=== PATIENT | female | born 1960 | race Caucasian/White ===

== ENCOUNTER 2018-09-11 17:08 | Emergency (ER) | payer OTHER, SELFPAY ==
[~2018-09-11] VITALS: Ht 160 cm; Wt 73.5 kg
--- NOTE | 2018-09-11 17:14 | NUR ---
PATIENT BIB [facility] FROM HOME, PATIENT RAN OUT OF [facility] 1 WEEK AGO AND REPORTS DEPRESSION SINCE PER EMS. DENIES HI/SI AT THIS TIME. AWAITING MD ORDERS, CALL LIGHT WITHIN REACH.
[2018-09-11] MEDS ORDERED: SERT100T PO (17:22)
--- NOTE | 2018-09-11 17:22 | NUR ---
PATIENT ANXIOUS BUT COOPERATIVE, SITTING IN GURNEY WATCHING TV. AWAITING FURTHER ORDERS, NO ADDITIONAL NEEDS AT THIS TIME.
[2018-09-11] MEDS ORDERED: TRAM50TA2 PO (17:23)
[2018-09-11] MEDS ORDERED: HORMONE (17:23)
--- NOTE | 2018-09-11 17:38 | NUR ---
PATIENT AMB WITH STEADY GAIT TO BATHROOM, UA COLLECTED AND SENT TO LAB.
--- NOTE | 2018-09-11 17:47 | NUR ---
break coverage: assumed care of pt on behalf of primary RN for break coverage. lab at bedside to draw
[2018-09-11 18:03] LABS: AMPHETAMINE SCREEN, URINE Negative (Negative); BARBITURATE SCREEN, URINE Negative (Negative); BENZODIAZEPINE SCREEN, URINE Negative (Negative); CANNABINOID SCREEN, URINE Positive (Negative); COCAINE SCREEN, URINE Negative (Negative); METHADONE SCREEN, URINE Negative (Negative); OPIATE SCREEN, URINE Negative (Negative)
[2018-09-11 18:03] LABS: BASOPHILS # (AUTO) 0.03 x10^3/uL (0-0.1); BASOPHILS % (AUTO) 1 % (0-1); EOSINOPHILS # (AUTO) 0.06 x10^3/uL (0-0.4); EOSINOPHILS % (AUTO) 1 % (1-7); LYMPHOCYTES # (AUTO) 1.96 x10^3/uL (1-3.4); LYMPHOCYTES % (AUTO) 31 % (22-44); MD NO; MEAN CORPUSCULAR HEMOGLOBIN 32.4 pg (27.0-34.8); MEAN CORPUSCULAR HGB CONC 33.6 g/dL (32.4-35.8); MEAN CORPUSCULAR VOLUME 96.5 fL (80-100); MEAN PLATELET VOLUME 7.9 fL (7.4-10.4); MONOCYTES # (AUTO) 0.36 x10^3/uL (0.2-0.8); MONOCYTES % (AUTO) 6 % (2-9); NEUTROPHILS # (AUTO) 3.94 x10^3/uL (1.8-6.8); NEUTROPHILS % (AUTO) 62 % (42-75); PLATELET COUNT 377 x10^3/uL (130-400); RED CELL DISTRIBUTION WIDTH 14.4 % (9.6-15.2)
[2018-09-11 18:15] LABS: ALBUMIN 3.8 g/dL (3.4-5.0); ANION GAP 7 mmol/L (5-15); CALCIUM 8.7 mg/dL (8.5-10.1); CHLORIDE 109 mmol/L (98-107)
[2018-09-11 18:19] LABS: ALANINE AMINOTRANSFERASE 20 U/L (12-78); ALKALINE PHOSPHATASE 99 U/L (45-117); BILIRUBIN,TOTAL 0.3 mg/dL (0.2-1.0); CREATININE 1.06 mg/dL (0.55-1.02); SALICYLATE LEVEL 3.2 mg/dL (2.8-20.0); TOTAL PROTEIN 7.1 g/dL (6.4-8.2)
--- NOTE | 2018-09-11 18:36 | NUR ---
RESULTS BACK, CHART UP FOR RECHECK.
--- NOTE | 2018-09-11 18:59 | NUR ---
LISA-0.242, PER ERP, PATIENT TO HAVE TELEPSYCH EVAL WHEN SO[place], [place] AWARE. MTF, PATIENT REQUESTING FOOD, DINNER TRAY ORDERED AT THIS TIME. NADN. NO ADDITIONAL NEEDS AT THIS TIME.
--- NOTE | 2018-09-11 19:29 | NUR ---
PATIENT PROVIDED DINNER ZAYRA ELLER. VS UPDATED IN CHART.
[2018-09-11 20:04] VITALS: BP 156/97
--- NOTE | 2018-09-11 20:05 | NUR ---
VS UPDATED IN CHART, PATIENT SITTING IN GURNEY WATCHING TV, A+0X4. AWAITING TELEPSYCH WHEN SOBER.
--- NOTE | 2018-09-11 20:25 | NUR ---
BREATHALYZER-0.104, AWAITING PATIENT TO BE SOBER PRIOR TO TELEPSYCH. PATIENT SITTING IN [place] WATCHING TV, A+OX4. PATIENT UPDATED ON POC.
--- NOTE | 2018-09-11 20:59 | NUR ---
REPORT TO ABRAHAM DEXTER. PATIENT REQUESTING TO GO HOME, NEW RN AND ERP AWARE. PATIENT TO BE DC'D PER ERP, PATIENT DENIES SI/HI AT THIS TIME. ZAYRA.
--- NOTE | 2018-09-11 21:00 | NUR ---
REPORT FROM ABRAHAM ARROYO. PT REQUESTING DC. ERP AT BEDSIDE TO DISCUSS
--- NOTE | 2018-09-11 21:10 | NUR ---
PER ERP, PT AGREEING TO TELEPSYCH CONSULT FOR GUIDANCE ON RX. ONCE SOBER, WILL TELEPSYCH
[2018-09-11] MEDS ORDERED: ONDANSETRON ODT 4 MG ONE (21:29)
[2018-09-11] MEDS ORDERED: ONDANSETRON ODT 4 MG PO ONE (21:30)
--- NOTE | 2018-09-11 21:33 | NUR ---
Assisted in pt care. Pt medicated per MAY s/t vomiting. Repeat breathalizer to be completed when pt able.
--- NOTE | 2018-09-11 21:56 | NUR ---
PT REPORTS IMPROVEMENT IN NAUSEA WITH MEDICATIONS. PT AMBULATES STEADILY, SPEECH CLEAR; A&OX4. NON-TREMULOUS. TELE PSYCH INITIATED. MONITOR AT BEDSIDE AND PT UPDATED TO POC. PT DEMONSTRATES UNDERSTANDING. AWAITING EVAL.
--- NOTE | 2018-09-11 23:02 | NUR ---
PT RESTING COMFORTABLY IN GURNEY. DENIES NEEDS. TELE PSYCH MONITOR AT BEDSIDE. AWAITING EVAL.
--- NOTE | 2018-09-12 00:31 | NUR ---
PT REMAINS WAITING PATIENTLY IN [facility]. TELE PSYCH MONITOR AT BEDSIDE.
--- NOTE | 2018-09-12 00:46 | NUR ---
REPORT TO ABRAHAM MARTINEZ
--- NOTE | 2018-09-12 00:52 | NUR ---
REPORT RECEIVED FROM ISACC ROSARIO.
--- NOTE | 2018-09-12 02:19 | NUR ---
PT GIVEN DC INSTRUCTIONS AND SCRIPT. PT EDUCATED REGARDING DC MEDICATION. PT'S AOX4. RESPS EVEN AND UNLABORED. PT AMB TO DC WITH STEADY GAIT. NO ACUTE DISTRESS AT DC.
== END 2018-09-12 02:20 | disposition home or self-care (01) ==
LOC: ED 19:53
DX: F32.1 Major depressive disorder, single episode, moderate (principal); F17.200 Nicotine dependence, unspecified, uncomplicated
CPT/HCPCS: 36415; 80053; 80307; 85025; 99284; Q0162

== ENCOUNTER 2019-07-31 20:21 | Emergency (ER) | payer SELFPAY ==
[~2019-07-31] VITALS: Ht 162.6 cm; Wt 60.0 kg
[~2019-07-31 20:21] MED LIST: HORMONE; SERT100T PO; TRAM50TA2 PO
--- NOTE | 2019-07-31 20:33 | NUR ---
PATIENT TO ED PER [facility] FOR EVALUATION OF FALL AND ETOH. PATIENT IS A CHRONIC ALCOHOLIC. [facility] REPORTS SHE DRANK A PINT OF LIQUOR TODAY AND DROVE HERSELF TO THE [employer]AS STATION TO GET MORE LIQUOR. [facility] REPORTS THAT PATIENT HAD A WITNESSED FALL GOING INTO THE [employer]. NO LOC. PATIENT REPORTS SHE DID HIT HER HEAD. SHE DENIES ANY CURRENT PAIN OR COMPLAINTS. ALERT AND COOPERATIVE. ORIENTED TO PERSON, PLACE AND SITUATION. NOT TIME. BLOOD SUGAR WAS 99 [address] R[address].
--- NOTE | 2019-07-31 20:38 | NUR ---
PATIENT TO AND FROM CT. AWAITING RESULTS.
--- NOTE | 2019-07-31 20:54 | NUR ---
CT NEGATIVE. GIVEN WATER OK PER .
--- NOTE | 2019-07-31 21:20 | NUR ---
PATIENT AMBULATED AROUND ED WITH STABLE GAIT AND STANDY ASSIST. PATIENT VOICES THAT SHE IS READY FOR D/C HOME. DISCUSSED WITH .
[2019-07-31 21:22] VITALS: BP 146/87
== END 2019-07-31 21:24 | disposition home or self-care (01) ==
LOC: ED 21:00
DX: F10.221 Alcohol dependence with intoxication delirium (principal); S09.90XA Unspecified injury of head, initial encounter; R55 Syncope and collapse; F17.200 Nicotine dependence, unspecified, uncomplicated; Y90.0 Blood alcohol level of less than 20 mg/100 ml; W18.30XA Fall on same level, unspecified, initial encounter; Y93.89 Activity, other specified; Y92.89 Other specified places as the place of occurrence of the external cause; Y99.8 Other external cause status
CPT/HCPCS: 70450; 99284

== ENCOUNTER 2019-11-10 13:10 | Emergency (ER) | payer SELFPAY ==
[~2019-11-10] VITALS: Ht 160 cm; Wt 63.7 kg
--- NOTE | 2019-11-10 13:40 | NUR ---
PT PLACED ON ROOM MONITORING, WARM BLANKET OFFERED. PT DENIES CP, SOB, N/V. SLIGHT TREMORS TO BILATERAL HANDS. PT APPEARS ANXIOUS AND DESCRIBES SX OF "FEELING SHAKY". PT STATES HX OF ETOH ABUSE MOST OF ADULT LIFE-NO PREVIOUS DETOX ATTEMPTS, AND DEPRESSION. PT DENIES SI, HI. CALL LIGHT WITHIN REACH.
[2019-11-10] MEDS ORDERED: CHLORDIAZEPOXIDE 25 MG CAPSULE PO ONE (14:00)
[2019-11-10] MEDS ORDERED: THIAMINE 100MG TABLET PO ONE (14:00)
[2019-11-10] MEDS ORDERED: ONDANSETRON ODT 4 MG PO ONE (14:00)
[2019-11-10] MEDS ORDERED: ONDANSETRON ODT 8 MG ONE (14:05)
[2019-11-10] MEDS ORDERED: THIAMINE 100MG TABLET ONE (14:05)
[2019-11-10] MEDS ORDERED: CHLORDIAZEPOXIDE 25 MG CAPSULE ONE (14:05)
--- NOTE | 2019-11-10 14:13 | NUR ---
MEDS GIVEN PER ERP ORDER. PT ASKED ABOUT WILLINGNESS TO GO TO [facility] IF SPACE AVAILABLE. PT REFUSING PLACEMENT WITH [facility]. STATES SHE WAS THERE FOR INPT TREATMENT IN MAY AND DOESN'T WANT TO GO BACK. RAFAEL PEPE INFORMED.
[2019-11-10 14:16] LABS: BASOPHILS # (AUTO) 0.04 x10^3/uL (0-0.1); BASOPHILS % (AUTO) 1 % (0-1); EOSINOPHILS # (AUTO) 0.06 x10^3/uL (0-0.4); EOSINOPHILS % (AUTO) 1 % (1-7); LYMPHOCYTES # (AUTO) 2.11 x10^3/uL (1-3.4); LYMPHOCYTES % (AUTO) 24 % (22-44); MD NO; MEAN CORPUSCULAR HEMOGLOBIN 30.1 pg (27.0-34.8); MEAN CORPUSCULAR HGB CONC 33.8 g/dL (32.4-35.8); MEAN CORPUSCULAR VOLUME 89.1 fL (80-100); MEAN PLATELET VOLUME 7.6 fL (7.4-10.4); MONOCYTES # (AUTO) 0.43 x10^3/uL (0.2-0.8); MONOCYTES % (AUTO) 5 % (2-9); NEUTROPHILS # (AUTO) 6.35 x10^3/uL (1.8-6.8); NEUTROPHILS % (AUTO) 71 % (42-75); PLATELET COUNT 391 x10^3/uL (130-400); RED BLOOD COUNT 5.29 x10^6/uL (3.82-5.3)
[2019-11-10 14:27] LABS: ALBUMIN 3.9 g/dL (3.4-5.0); ANION GAP 11 mmol/L (5-15); CALCIUM 8.3 mg/dL (8.5-10.1); CHLORIDE 106 mmol/L (98-107)
[2019-11-10 14:30] LABS: ALANINE AMINOTRANSFERASE 34 U/L (12-78); ALKALINE PHOSPHATASE 120 U/L (45-117); BILIRUBIN,TOTAL 1.2 mg/dL (0.2-1.0); CREATININE 0.88 mg/dL (0.55-1.02); TOTAL PROTEIN 7.3 g/dL (6.4-8.2)
--- NOTE | 2019-11-10 14:51 | NUR ---
ALL RESULTS BACK, PT FOR RECHECK.
--- NOTE | 2019-11-10 15:40 | NUR ---
IN TO PT ROOM TO PROVIDE DISCHARGE INSTRUCTS/SCRIPT. PT NOT IN ROOM AND NOT FOUND IN DEPT OR LOBBY. DC PAPERS AND SCRIPT LEFT AT [employer] [facility].
[2019-11-10 15:46] VITALS: BP 126/74
== END 2019-11-10 15:49 ==
LOC: ED 14:30
DX: F10.10 Alcohol abuse, uncomplicated (principal); R00.0 Tachycardia, unspecified; Y90.0 Blood alcohol level of less than 20 mg/100 ml
CPT/HCPCS: 36415; 80053; 85025; 93005; 99284; Q0162

== ENCOUNTER 2019-11-16 19:32 | Inpatient (IN) | payer OTHER ==
[~2019-11-16] VITALS: Ht 160 cm; Wt 65.3 kg
--- NOTE | 2019-11-16 19:59 | NUR ---
BREAK RN: REPORT GIVEN TO ABRAHAM CARLSON
[2019-11-16] MEDS ORDERED: ONDANSETRON 2MG/ML, 2ML IVPush ONE (20:00)
[2019-11-16] MEDS ORDERED: SODIUM CHLORIDE FLUSH 10ML SYR IVF ONE (20:00)
[2019-11-16] MEDS ORDERED: LORazepam 2 MG/ML, 1ML ONE ×4 (20:02→23:38)
[2019-11-16] MEDS ORDERED: ONDANSETRON 2MG/ML, 2ML ONE (20:02)
[2019-11-16] MEDS: LORazepam 2 MG/ML, 1ML IVPush PRN ×4 (20:14→23:41)
--- NOTE | 2019-11-16 20:57 | NUR ---
PT RESTING IN GURNEY. EYES CLOSED. EQUAL CHEST AND RISE FALL WITH EACH BREATH. NAD
[2019-11-16 21:05] LABS: ALBUMIN 3.4 g/dL (3.4-5.0); ANION GAP 19 mmol/L (5-15); CALCIUM 8.4 mg/dL (8.5-10.1); CHLORIDE 104 mmol/L (98-107)
[2019-11-16 21:09] LABS: ALANINE AMINOTRANSFERASE 58 U/L (12-78); ALKALINE PHOSPHATASE 123 U/L (45-117); BILIRUBIN,TOTAL 0.7 mg/dL (0.2-1.0); CREATININE 0.98 mg/dL (0.55-1.02); TOTAL PROTEIN 6.4 g/dL (6.4-8.2)
--- NOTE | 2019-11-16 21:09 | NUR ---
PT MEDICATED PER MAR
[2019-11-16 21:18] LABS: MEAN CORPUSCULAR HEMOGLOBIN 29.8 pg (27.0-34.8); MEAN CORPUSCULAR HGB CONC 33.5 g/dL (32.4-35.8); MEAN CORPUSCULAR VOLUME 88.9 fL (80-100); MEAN PLATELET VOLUME 7.9 fL (7.4-10.4); PLATELET COUNT 227 x10^3/uL (130-400); RED BLOOD COUNT 4.95 x10^6/uL (3.82-5.3); RED CELL DISTRIBUTION WIDTH 14.4 % (9.6-15.2)
[2019-11-16 21:21] LABS: BASOPHILS # (AUTO) 0.04 x10^3/uL (0-0.1); BASOPHILS % (AUTO) 0 % (0-1); EOSINOPHILS % (AUTO) 0 % (1-7); LYMPHOCYTES # (AUTO) 1.45 x10^3/uL (1-3.4); LYMPHOCYTES % (AUTO) 12 % (22-44); MD SCAN; MONOCYTES # (AUTO) 0.23 x10^3/uL (0.2-0.8); MONOCYTES % (AUTO) 2 % (2-9); NEUTROPHILS % (AUTO) 86 % (42-75)
--- NOTE | 2019-11-16 21:34 | NUR ---
PT TREMLOUS. MEDICATED PER MAY. NOTFIED. TOBADM
--- NOTE | 2019-11-16 22:15 | NUR ---
WARM BLANKET PROVIDED. AWAITING MD ORDERS
[2019-11-16] MEDS ORDERED: SODIUM CHLORIDE FLUSH 10ML SYR IVF PRN (22:30)
[2019-11-16] MEDS ORDERED: SODIUM CHLORIDE 0.9% 1,000 ML IV SCH (23:57)
[2019-11-17] MEDS ORDERED: PROMETHAZINE 25 MG/ML, 1ML IM PRN
[2019-11-17] MEDS ORDERED: morphine SULFATE 10 MG/ML, 1ML IVPush PRN
[2019-11-17] MEDS ORDERED: POLYETHYLENE GLYCOL 17 GM PACKET PO PRN
[2019-11-17] MEDS ORDERED: ONDANSETRON 2MG/ML, 2ML IVPush PRN
[2019-11-17] MEDS ORDERED: DOCUSATE 100 MG CAPSULE PO PRN
[2019-11-17] MEDS ORDERED: hydrALAzine 20 MG/ML, 1ML IVPush PRN
[2019-11-17] MEDS ORDERED: ONDANSETRON ODT 4 MG PO PRN
[2019-11-17] MEDS ORDERED: BISACODYL 10 MG SUPP PR PRN
[2019-11-17] MEDS ORDERED: LORazepam 1MG TABLET PO PRN ×3 (00:30)
[2019-11-17] MEDS ORDERED: D5%-0.45% NACL 1,000 ML IV SCH ×2 (00:30→01:30)
[2019-11-17] MEDS ORDERED: LORazepam 2 MG/ML, 1ML IV PRN ×2 (00:30)
[2019-11-17 00:34] LABS: FREE T4 (FREE THYROXINE) 0.89 ng/dL (0.76-1.46)
[2019-11-17] MEDS ORDERED: HEPARIN 5,000 UNITS/ML, 1ML ONE (01:04)
[2019-11-17] MEDS: HEPARIN 5,000 UNITS/ML, 1ML SQ SCH ×3 (01:12→19:10)
[2019-11-17 01:14] VITALS: BP 132/83
[2019-11-17] MEDS: LORazepam 2 MG/ML, 1ML IV PRN ×5 (05:06→23:07)
[2019-11-17 06:47] VITALS: BP 141/83
[2019-11-17 08:03] LABS: BASOPHILS # (AUTO) 0.02 x10^3/uL (0-0.1); BASOPHILS % (AUTO) 0 % (0-1); EOSINOPHILS # (AUTO) 0.07 x10^3/uL (0-0.4); EOSINOPHILS % (AUTO) 1 % (1-7); LYMPHOCYTES # (AUTO) 2.39 x10^3/uL (1-3.4); LYMPHOCYTES % (AUTO) 29 % (22-44); MD NO; MEAN CORPUSCULAR HEMOGLOBIN 29.7 pg (27.0-34.8); MEAN CORPUSCULAR HGB CONC 33.4 g/dL (32.4-35.8); MEAN CORPUSCULAR VOLUME 88.9 fL (80-100); MEAN PLATELET VOLUME 7.8 fL (7.4-10.4); MONOCYTES # (AUTO) 0.37 x10^3/uL (0.2-0.8); MONOCYTES % (AUTO) 5 % (2-9); NEUTROPHILS # (AUTO) 5.29 x10^3/uL (1.8-6.8); NEUTROPHILS % (AUTO) 65 % (42-75); PLATELET COUNT 172 x10^3/uL (130-400); RED BLOOD COUNT 4.33 x10^6/uL (3.82-5.3); RED CELL DISTRIBUTION WIDTH 14.9 % (9.6-15.2)
[2019-11-17 08:06] LABS: ALANINE AMINOTRANSFERASE 41 U/L (12-78); ANION GAP 5 mmol/L (5-15); CHLORIDE 108 mmol/L (98-107); CHOLESTEROL, TOTAL 124 mg/dL (140-239); CREATININE 0.74 mg/dL (0.55-1.02)
[2019-11-17 08:08] LABS: ALKALINE PHOSPHATASE 107 U/L (45-117); BILIRUBIN,TOTAL 2.3 mg/dL (0.2-1.0); CHOL/HDL RATIO 2.2; HDL CHOL % 45 % (28-40); HDL CHOLESTEROL (DIRECT) 56 mg/dL (40-60); LDL CHOLESTEROL,CALCULATED 40 mg/dL (54-169); LDL/HDL RATIO 0.7 (0.5-3.0); TOTAL PROTEIN 5.5 g/dL (6.4-8.2); TRIGLYCERIDES 140 mg/dL (50-200); VLDL CHOLESTEROL 28 mg/dL (0-25)
[2019-11-17] MEDS: SODIUM CHLORIDE 0.9% 1,000 ML IV SCH ×2 (08:30→17:57)
[2019-11-17] MEDS ORDERED: POTASSIUM CHLORIDE 40 MEQ in SODIUM CHLORIDE 0.9% 500 ML IV ONE (08:30)
[2019-11-17] MEDS: THIAMINE 100MG TABLET PO SCH (09:00)
[2019-11-17] MEDS: SERTRALINE 100MG TABLET PO SCH (10:30)
[2019-11-17] MEDS: LORazepam 1MG TABLET PO SCH ×3 (10:30→20:44)
[2019-11-17] MEDS: MULTIVITAMINS/MINERALS TABLET PO SCH (10:31)
[2019-11-17] MEDS: NICOTINE 14MG/24 HR PATCH.TD24 TD SCH ×2 (10:31→20:44)
[2019-11-17 12:56] VITALS: BP 156/93
[2019-11-17 19:19] VITALS: BP 163/95
[2019-11-17] MEDS: LORazepam 1MG TABLET PO PRN ×2 (20:50→22:01)
[2019-11-17 22:03] VITALS: BP 145/79
[2019-11-17] MEDS: CHLORDIAZEPOXIDE 25 MG CAPSULE PO PRN (23:48)
[2019-11-18 00:26] VITALS: BP 155/86
[2019-11-18] MEDS: LORazepam 2 MG/ML, 1ML IV PRN ×6 (00:53→23:30)
[2019-11-18] MEDS: SODIUM CHLORIDE 0.9% 1,000 ML IV SCH ×2 (02:29→14:30)
[2019-11-18] MEDS: HEPARIN 5,000 UNITS/ML, 1ML SQ SCH ×3 (02:29→18:18)
[2019-11-18 02:59] VITALS: BP 137/86
[2019-11-18 06:27] VITALS: BP 113/79
[2019-11-18] MEDS: CHLORDIAZEPOXIDE 25 MG CAPSULE PO PRN ×2 (06:28→20:11)
[2019-11-18 06:29] LABS: CHLORIDE 108 mmol/L (98-107)
[2019-11-18 06:38] LABS: BASOPHILS # (AUTO) 0.02 x10^3/uL (0-0.1); BASOPHILS % (AUTO) 0 % (0-1); EOSINOPHILS # (AUTO) 0.15 x10^3/uL (0-0.4); EOSINOPHILS % (AUTO) 3 % (1-7); LYMPHOCYTES # (AUTO) 2.02 x10^3/uL (1-3.4); LYMPHOCYTES % (AUTO) 36 % (22-44); MD NO; MEAN CORPUSCULAR HEMOGLOBIN 30.2 pg (27.0-34.8); MEAN CORPUSCULAR VOLUME 88.8 fL (80-100); MEAN PLATELET VOLUME 8.5 fL (7.4-10.4); MONOCYTES # (AUTO) 0.36 x10^3/uL (0.2-0.8); MONOCYTES % (AUTO) 7 % (2-9); NEUTROPHILS # (AUTO) 3.03 x10^3/uL (1.8-6.8); NEUTROPHILS % (AUTO) 54 % (42-75); PLATELET COUNT 156 x10^3/uL (130-400); RED BLOOD COUNT 4.23 x10^6/uL (3.82-5.3); RED CELL DISTRIBUTION WIDTH 14.4 % (9.6-15.2)
[2019-11-18 06:41] LABS: ALANINE AMINOTRANSFERASE 36 U/L (12-78); ALBUMIN 3.3 g/dL (3.4-5.0); ALKALINE PHOSPHATASE 106 U/L (45-117); ANION GAP 7 mmol/L (5-15); BILIRUBIN,TOTAL 1.2 mg/dL (0.2-1.0); CALCIUM 8.9 mg/dL (8.5-10.1); CREATININE 0.67 mg/dL (0.55-1.02)
[2019-11-18] MEDS: LORazepam 1MG TABLET PO SCH ×4 (10:20→20:10)
[2019-11-18] MEDS: SERTRALINE 100MG TABLET PO SCH (10:20)
[2019-11-18] MEDS: MULTIVITAMINS/MINERALS TABLET PO SCH (10:20)
[2019-11-18] MEDS: THIAMINE 100MG TABLET PO SCH (10:20)
[2019-11-18 13:10] VITALS: BP 123/81
[2019-11-18 18:41] VITALS: BP 123/72
[2019-11-19 00:19] VITALS: BP 135/82
[2019-11-19] MEDS: LORazepam 2 MG/ML, 1ML IV PRN ×2 (00:30→02:02)
[2019-11-19] MEDS: HEPARIN 5,000 UNITS/ML, 1ML SQ SCH ×3 (02:02→18:53)
[2019-11-19] MEDS: CHLORDIAZEPOXIDE 25 MG CAPSULE PO PRN ×2 (05:41→20:12)
[2019-11-19] MEDS: LORazepam 1MG TABLET PO SCH ×4 (05:43→20:12)
[2019-11-19 05:54] LABS: ALBUMIN 3.4 g/dL (3.4-5.0); ANION GAP 8 mmol/L (5-15); CALCIUM 8.8 mg/dL (8.5-10.1); CHLORIDE 105 mmol/L (98-107)
[2019-11-19 05:57] LABS: ALANINE AMINOTRANSFERASE 34 U/L (12-78); ALKALINE PHOSPHATASE 95 U/L (45-117); BILIRUBIN,TOTAL 0.9 mg/dL (0.2-1.0); CREATININE 0.62 mg/dL (0.55-1.02); TOTAL PROTEIN 6.5 g/dL (6.4-8.2)
[2019-11-19 08:05] VITALS: BP 146/88
[2019-11-19] MEDS: SODIUM CHLORIDE 0.9% 1,000 ML IV SCH (08:30)
[2019-11-19] MEDS ORDERED: POTASSIUM CHLORIDE 40 MEQ in SODIUM CHLORIDE 0.9% 500 ML IV ONE (10:00)
[2019-11-19] MEDS: MULTIVITAMINS/MINERALS TABLET PO SCH (10:13)
[2019-11-19] MEDS: SERTRALINE 100MG TABLET PO SCH (10:13)
[2019-11-19] MEDS: NICOTINE 14MG/24 HR PATCH.TD24 TD SCH (10:14)
[2019-11-19] MEDS: OXYcodone IR 5MG TABLET PO PRN (10:37)
[2019-11-19] MEDS ORDERED: THIAMINE 50MG TABLET PO SCH (11:00)
[2019-11-19 13:35] VITALS: BP 148/90
[2019-11-19 19:16] VITALS: BP 125/82
[2019-11-20] MEDS: SODIUM CHLORIDE 0.9% 1,000 ML IV SCH (00:34)
[2019-11-20 01:11] VITALS: BP 118/76
[2019-11-20] MEDS: HEPARIN 5,000 UNITS/ML, 1ML SQ SCH (02:28)
[2019-11-20] MEDS: LORazepam 1MG TABLET PO SCH (05:20)
[2019-11-20] MEDS: CHLORDIAZEPOXIDE 25 MG CAPSULE PO PRN (05:20)
[2019-11-20 06:12] LABS: ANION GAP 9 mmol/L (5-15); CALCIUM 8.3 mg/dL (8.5-10.1); CHLORIDE 111 mmol/L (98-107); CREATININE 0.57 mg/dL (0.55-1.02)
[2019-11-20 06:38] VITALS: BP 133/81
[2019-11-20] MEDS: ENOXAPARIN 40 MG/0.4 ML SQ SCH (07:34)
[2019-11-20] MEDS: NICOTINE 14MG/24 HR PATCH.TD24 TD SCH (07:34)
[2019-11-20] MEDS: SERTRALINE 100MG TABLET PO SCH (09:45)
[2019-11-20] MEDS: MULTIVITAMINS/MINERALS TABLET PO SCH (09:45)
[2019-11-20] MEDS: THIAMINE 100MG TABLET PO SCH (09:45)
[2019-11-20 12:50] VITALS: BP 133/84
[2019-11-20 18:26] VITALS: BP 112/68
[2019-11-20] MEDS: LORazepam 0.5MG TABLET PO PRN (20:38)
[2019-11-20] MEDS ORDERED: MELATONIN 5 MG TABLET ONE (23:12)
[2019-11-20] MEDS ORDERED: MELATONIN 5 MG TABLET PO PRN (23:30)
[2019-11-21 00:31] VITALS: BP 128/80
[2019-11-21] MEDS: LORazepam 0.5MG TABLET PO PRN (02:32)
[2019-11-21] MEDS: OXYcodone IR 5MG TABLET PO PRN (03:55)
[2019-11-21 07:11] VITALS: BP 126/76
[2019-11-21] MEDS: THIAMINE 100MG TABLET PO SCH (10:44)
[2019-11-21] MEDS: SERTRALINE 100MG TABLET PO SCH (10:44)
[2019-11-21] MEDS: NICOTINE 14MG/24 HR PATCH.TD24 TD SCH (10:44)
[2019-11-21] MEDS: MULTIVITAMINS/MINERALS TABLET PO SCH (10:44)
[2019-11-21] MEDS: ENOXAPARIN 40 MG/0.4 ML SQ SCH (10:44)
[2019-11-21] MEDS ORDERED: MULT-484 PO (11:34)
[2019-11-21] MEDS ORDERED: THIA100T67 PO (11:34)
[2019-11-21] MEDS ORDERED: FOLI-17 PO (11:34)
[2019-11-21 12:33] VITALS: BP 117/82
== END 2019-11-21 15:25 | disposition home or self-care (01) | DRG 641 ==
LOC: ED 21:41 → EDIP 22:54 → 4WST 11-17 01:02 → 4EST 11-18 14:14 → 4WST 11-20 16:58
PROVIDERS: ADMIT Internal Medicine; ATTEND Internal Medicine
DX: E86.0 Dehydration (principal); F10.239 Alcohol dependence with withdrawal, unspecified; E87.6 Hypokalemia; F17.200 Nicotine dependence, unspecified, uncomplicated; F32.9 Major depressive disorder, single episode, unspecified; F41.9 Anxiety disorder, unspecified; Z81.1 Family history of alcohol abuse and dependence; D72.829 Elevated white blood cell count, unspecified; R00.0 Tachycardia, unspecified
CPT/HCPCS: 36415; 80048; 80053; 80061; 80307; 83036; 83735; 84100; 84439; 84443; 85025; G0378; J1644; J1650; J2405; J3480; J2060; J7030; J7040